=== PATIENT | male | born 1975 | race Caucasian/White ===

== ENCOUNTER 2017-03-11 18:08 | Emergency (ER) | payer OTHER ==
[2017-03-11 18:56] LABS: Basophils % (Auto) 0.8 % (0.0-1.8); Eosinophils % (Auto) 0.8 % (0.0-4.3); Hematocrit 47.4 % (35.5-45.6); Hemoglobin 16.4 gm/dl (11.8-15.2); Mean Corpuscular HGB Conc 35 % (32-34); Mean Corpuscular Hemoglobin 31 pg (28-32); Mean Corpuscular Volume 89 fl (84-94); Platelet Count 273 K/mm3 (140-440); Red Blood Count 5.33 M/mm3 (3.65-5.03); Red Cell Distribution Width 12.8 % (13.2-15.2); White Blood Count 8.9 K/mm3 (4.5-11.0)
[2017-03-11 19:15] LABS: Anion Gap 25 mmol/L; BUN/Creatinine Ratio 11.81; Blood Urea Nitrogen 13 mg/dL (9-20); Calcium 10.1 mg/dL (8.4-10.2); Carbon Dioxide 23 mmol/L (22-30); Chloride 91.9 mmol/L (98-107); Glucose 498 mg/dL (75-100); Potassium 4.7 mmol/L (3.6-5.0); Sodium 135 mmol/L (137-145)
[2017-03-11 20:25] VITALS: BP 143/93
--- NOTE | 2017-03-11 21:21 | Emergency Department Report ---
HPI - General Chief Complaint: Hyperglycemia Time Seen by Provider: 03/11/17 19:57 - HPI HPI: patient with nausea, dizziness, elevated blood sugars, no history of diabetes. ED Past Medical Hx - Past Medical History Previous Medical History?: No - Surgical History Past Surgical History?: No - Family History Family history: hypertension - Social History Smoking Status: Never Smoker Substance Use Type: Alcohol - Medications Home Medications: Home Medications Medication Instructions Recorded Confirmed Last Taken Type Metformin HCl [Glucophage] 1,000 mg PO BID #60 tablet 03/11/17 Unknown Rx ED Review of Systems ROS: Stated complaint: HIGH BLOOD SUGAR Other details as noted in HPI Comment: All other systems reviewed and negative Respiratory: no symptoms reported Gastrointestinal: nausea Physical Exam - Physical Exam Vital Signs: Vital Signs 03/11/17 03/11/17 03/11/17 18:32 19:37 19:40 Temperature 98.7 F Pulse Rate 90 84 85 Respiratory 22 18 18 Rate Blood Pressure 148/109 Blood Pressure 152/100 [Right] O2 Sat by Pulse 98 97 Oximetry 03/11/17 20:00 Temperature Pulse Rate 85 Respiratory 16 Rate Blood Pressure 143/93 Blood Pressure [Right] O2 Sat by Pulse 97 Oximetry Physical Exam: GENERAL: The patient is well-developed well-nourished. HEENT: Normocephalic. Atraumatic. Extraocular motions are intact. Patient has moist mucous membranes. NECK: Supple. No meningitic signs are noted. There is no adenopathy noted. CHEST/LUNGS: Clear to auscultation. There is no respiratory distress noted. HEART/CARDIOVASCULAR: Regular. There is no tachycardia. There is no gallop rub or murmur. ABDOMEN: Abdomen is soft, nontender. Patient has normal bowel sounds. There is no abdominal distention. SKIN: There is no rash. There is no edema. There is no diaphoresis. NEURO: The patient is awake, alert, and oriented. The patient is cooperative. The patient has no focal neurologic deficits. The patient has normal speech and gait. Cranial nerves II through XII grossly intact, no drift. Negative Romberg MUSCULOSKELETAL: good rom in all ext ED Course Vital Signs 03/11/17 03/11/17 03/11/17 18:32 19:37 19:40 Temperature 98.7 F Pulse Rate 90 84 85 Respiratory 22 18 18 Rate Blood Pressure 148/109 Blood Pressure 152/100 [Right] O2 Sat by Pulse 98 97 Oximetry 03/11/17 20:00 Temperature Pulse Rate 85 Respiratory 16 Rate Blood Pressure 143/93 Blood Pressure [Right] O2 Sat by Pulse 97 Oximetry ED Medical Decision Making - Lab Data Result diagrams: 03/11/17 18:39 03/11/17 18:39 Critical care attestation.: If time is entered above; I have spent that time in minutes in the direct care of this critically ill patient, excluding procedure time. ED Disposition Clinical Impression: New onset type 2 diabetes mellitus, Hyperglycemia Disposition: DC-01 TO HOME OR SELFCARE Is pt being admited?: No Does the pt Need Aspirin: No Condition: Stable Instructions: Diabetes Mellitus Type 2 in Adults (ED) Prescriptions: Metformin HCl [Glucophage] 1,000 mg PO BID #60 tablet Referrals: PRIMARY CARE, [Primary Care Provider] - 3-5 Days
== END 2017-03-11 21:53 | disposition home or self-care (01) ==
LOC: ED 18:08
DX: E11.9 Type 2 diabetes mellitus without complications (principal)
CPT/HCPCS: 36415; 80048; 82805; 82962; 85025; 96374; J1815